=== PATIENT | female | born 1995 | race Caucasian/White ===

== ENCOUNTER 2018-09-01 19:26 | Emergency (ER) | payer OTHER ==
--- NOTE | 2018-09-01 19:31 | PDOC ---
Rapid Medical Evaluation Time Seen by Provider: 09/01/18 19:29 Medical Evaluation: Allergies Allergy/AdvReac Type Severity Reaction Status Date / Time No Known Allergies Allergy Verified 08/13/17 01:49 09/01/18 19:29 I performed a brief in-person evaluation of this patient. Chief complaint: LLQ pain, abdominal bloating, reports green malodorous vaginal discharge Pertinent physical exam findings: LLQ tenderness I have ordered the following: Abdominal labs, urine GC Patient to proceed to the ED for further evaluation. Discharge Disposition - Diagnosis Abdominal pain - Referrals - Patient Instructions - Post Discharge Activity
[2018-09-01 19:32] VITALS: BP 134/76; PULSE 94; TEMP 97.9; BMI 23.6
[2018-09-01 19:54] LABS: BASO % 0.9 % (0-2.0); EOS % 1.2 % (0-4.5); HEMATOCRIT 42.2 % (32.4-45.2); HEMOGLOBIN 14.9 GM/dL (10.7-15.3); LYMPH % 33.8 % (8-40); MCH 33.2 pg (25.7-33.7); MCHC 35.3 g/dl (32.0-36.0); MEAN PLT VOLUME 7.4 fl (7.5-11.1); MONO % 6.5 % (3.8-10.2); NEUT % 57.6 % (42.8-82.8); PLATELET COUNT 300 K/MM3 (134-434); RDW 11.9 % (11.6-15.6); WHITE BLOOD COUNT 7.8 K/mm3 (4.0-10.0)
[2018-09-01 20:47] LABS: ALBUMIN 4.2 g/dl (3.4-5.0); ALK PHOS 83 U/L (45-117); ANION GAP 8 MMOL/L (8-16); BILIRUBIN,TOTAL 0.4 mg/dL (0.2-1); BLOOD UREA NITROGEN 17 mg/dL (7-18); CALCIUM 8.7 mg/dL (8.5-10.1); CHLORIDE 106 mmol/L (98-107); CO2 25 mmol/L (21-32); CREATININE 0.8 mg/dL (0.55-1.3); GLUCOSE,RANDOM 69 mg/dL (74-106); LIPASE 245 U/L (73-393); POTASSIUM 3.7 mmol/L (3.5-5.1); SGOT/AST 17 U/L (15-37); SGPT/ALT 16 U/L (13-61); SODIUM 139 mmol/L (136-145); TOT PROT 7.6 g/dl (6.4-8.2)
--- NOTE | 2018-09-01 22:27 | PDOC ---
Attending Attestation - HPI HPI: The patient is a 23 year old female, with no significant PMH, who presents to the emergency department today complaining of left lower quadrant abdominal pain for 3 months, and vaginal discharge for 3 weeks. Patient describes her LLQ pain as crampy in nature, without any alleviating or aggravating factors, and reports associated nausea without vomit. Patient also endorses malodorous discharge, yellow in color, with associated urinary urgency. She reports being sexually active, intermittently protective, with one male partner and is currently on control. The patient denies chest pain, shortness of breath, headache and dizziness. Denies fever, chills, vomit, diarrhea and constipation. Denies dysuria, frequency, urgency and hematuria. Allergies: NKA Past surgical history: None reported Social history: Sexually active, intermittently protective, with one male partner. Currently on control PCP: Dr. Galina Vines 09/01/18 23:21 - Physicial Exam PE: GENERAL: The patient is in no acute distress. Resting comfortably. HEAD: Normal with no signs of trauma. EYES: PERRLA, EOMI, sclera anicteric, conjunctiva clear. ENT: Ears normal, nares patent, oropharynx clear without exudates. Moist mucous membranes. NECK: Normal range of motion, supple without lymphadenopathy, JVD, or masses. LUNGS: Breath sounds equal, clear to auscultation bilaterally. No wheezes, and no crackles. HEART:Regular rate and rhythm, normal S1 and S2 without murmur, rub or gallop. ABDOMEN: +LLQ tenderness to palpation. Soft, normoactive bowel sounds. No guarding, no rebound. No masses palpable. PELVIC: As per Dr. Vargas note EXTREMITIES: Normal range of motion, no edema. No clubbing or cyanosis. No erythema, or tenderness. NEUROLOGICAL: Cranial nerves II through XII grossly intact. Normal speech. No focal neurological deficits. MUSCULOSKELETAL: Back non-tender to palpation, no CVA tenderness SKIN: Warm, Dry, normal turgor, no rashes or lesions noted. 09/01/18 23:50 - Medical Decision Making EXAM: Transvaginal ultrasound HISTORY: Left pelvic pain. Rule out torsion. FINDINGS: The uterus is in normal size and echogenicity. No uterine masses visualized. The endometrial echo complex is normal in thickness measuring 3.3 mm. The right and left ovaries are normal in size, both containing small follicles. Atrial and venous flow is demonstrated to both ovaries on Doppler evaluation. No adnexal masses visualized. No free fluid. Reported by: Shamar Smith MD. 09/02/2018 00:37 Documentation prepared by HAYLEY Woodward, acting as medical practice assistant for Taylor Joe MD. 09/02/18 00:42 <Mariama Madera - Last Filed: 09/02/18 00:42> - Resident Resident Name: Osmany Scott - ED Attending Attestation I have performed the following: I have examined & evaluated the patient, The case was reviewed & discussed with the resident, I agree w/resident's findings & plan, Exceptions are as noted - Medical Decision Making 23 yo F presenting to the ER with LLQ abdominal pain which has been present for 3 weeks, associated with vaginal discharge for 4 days No systemic signs of illness No diarrhea No vomiting No dysuria DD: IUP, ovarian torsion, ruptured cyst, PID, TOA, vaginitis, cystitis 09/03/18 01:01 Laboratory Tests 09/01/18 09/01/18 09/01/18 19:35 19:36 23:11 WBC 7.8 Hgb 14.9 Hct 42.2 D Plt Count 300 D BUN 17 Creatinine 0.8 Lipase 245 Urine Blood Negative Urine Nitrite Negative Ur Leukocyte Esterase Negative Urine HCG, Qual Negative 09/03/18 01:03 Treated for G/C empirically. UA: Neg, HCG: Neg TVUS negative for ovarian torsion, ruptured cyst <Taylor Joe - Last Filed: 09/03/18 01:08>
--- NOTE | 2018-09-01 22:43 | PDOC ---
History of Present Illness - General Chief Complaint: Pain Stated Complaint: PAIN Time Seen by Provider: 09/01/18 19:29 - History of Present Illness Initial Comments: 09/01/18 22:37 23 yo F with no significant pmh who p/w LLQ abdominal pain, and vaginal discharge. Patient reports 3 months of crampy, LLQ abdominal pain, with no identifiable triggers or alleviators. States that for past 3 weeks, she has visualized movement of abdomen. endorses nausea without vomiting x 1 day, and 4 days of malodorus, yellow, vaginal discharge. Patient denies symptom control. + increased urinary urgency. Nml bowel habits. Denies abdominal trauma. Patient denies EVANS, vision change, palpitations, cough, wheezing, orthopena, PND , leg swelling/pain, F,C, CP, SOB, dysuria, hematuria, BPR, pelvic pain, dyspareurnia, diarrhea, constipation, lightheadedness, weakness, sensory changes. PMHx: as noted above ROS: as noted SHx: Denies Etoh, IVDA, tobacco use. Sexually active with one sexual male partner ( intermittent condom/barrier protection). Denies h/o STI's. Contraception/Depo Provera IM. Allergies: NKDA Past History - Past Medical History Allergies/Adverse Reactions: Allergies Allergy/AdvReac Type Severity Reaction Status Date / Time No Known Allergies Allergy Verified 09/01/18 19:32 Home Medications: Ambulatory Orders Ibuprofen [Motrin -] 200 mg PO Q4H PRN #0 tablet 07/30/16 Benzonatate [Tessalon Pearls -] 100 mg PO TID PRN #21 capsule 08/13/17 Ibuprofen [Motrin -] 400 mg PO QID PRN #28 tablet 08/13/17 Pseudoephedrine HCl [Pseudoephedrine ER] 120 mg PO BID PRN #14 tablet.er Doxycycline Hyclate 100 mg PO BID 14 Days #28 capsule MDD 2 tab 09/01/18 Asthma: Yes Cancer: No Cardiac Disorders: No COPD: No Diabetes: No HTN: No Seizures: No Thyroid Disease: No - Immunization History Immunization Up to Date: Yes - Suicide/Smoking/Psychosocial Hx Smoking History: Never smoked Have you smoked in the past 12 months: No Hx Alcohol Use: No Drug/Substance Use Hx: No Substance Use Type: None Hx Substance Use Treatment: No Review of Systems - Review of Systems Comments:: 09/01/18 22:42 GENERAL/CONSTITUTIONAL: No fever or chills. No weakness. HEAD, EYES, EARS, NOSE AND THROAT: No change in vision. No ear pain or discharge. No sore throat. CARDIOVASCULAR: No chest pain or shortness of breath RESPIRATORY: No cough, wheezing, or hemoptysis. GASTROINTESTINAL: + abdominal pain and nausea. no vomiting, diarrhea or constipation. GENITOURINARY: + vaginal discharge and urinary frequency. No dysuria. MUSCULOSKELETAL: No joint or muscle swelling or pain. No neck or back pain. SKIN: No rash NEUROLOGIC: No headache, vertigo, loss of consciousness, or change in strength/ sensation. ENDOCRINE: No increased thirst. No abnormal weight change HEMATOLOGIC/LYMPHATIC: No anemia, easy bleeding, or history of blood clots. ALLERGIC/IMMUNOLOGIC: No hives or skin allergy. *Physical Exam - Vital Signs Last Vital Signs Temp Pulse Resp BP Pulse Ox 97.9 F 94 H 18 134/76 98 09/01/18 19:28 09/01/18 19:28 09/01/18 19:28 09/01/18 19:28 09/01/18 19:28 - Physical Exam Comments: 09/01/18 22:43 GENERAL: Awake, alert, and fully oriented, in no acute distress HEAD: No signs of trauma, normocephalic, atraumatic EYES: PERRLA, EOMI, sclera anicteric, conjunctiva clear ENT: Hearing grossly normal, nares patent, oropharynx clear without exudates. Moist mucosa NECK: Normal ROM, supple, no lymphadenopathy, JVD, or masses LUNGS: No distress, speaks full sentences, clear to auscultation bilaterally HEART: Regular rate and rhythm, normal S1 and S2, no murmurs, rubs or gallops, peripheral pulses normal and equal bilaterally. ABDOMEN: + LLQ abdominal ttp. Soft, NDS, normoactive bowel sounds. No guarding , no rebound. No masses. Neg CVA ttp. GENITOURINARY: Nml appearing external genitalia, with absent lesions. Vaginal vault without blood, or discharge. Cervical os closed. Neg CMT on BM. Neg adenexal ttp, or mass palpated. EXTREMITIES : Normal inspection, Normal range of motion, no edema. No clubbing or cyanosis. NEUROLOGICAL: Cranial nerves II through XII grossly intact. Normal speech, normal gait, no focal sensorimotor deficits SKIN: Warm, Dry, normal turgor, no rashes or lesions noted Moderate Sedation - Procedure Monitoring Vital Signs: Procedure Monitoring Vital Signs Temperature 97.9 F 09/01/18 19:28 Pulse Rate 94 H 09/01/18 19:28 Respiratory Rate 18 09/01/18 19:28 Blood Pressure 134/76 09/01/18 19:28 O2 Sat by Pulse Oximetry (%) 98 09/01/18 19:28 ED Treatment Course - LABORATORY CBC & Chemistry Diagram: 09/01/18 19:36 09/01/18 19:35 - ADDITIONAL ORDERS Additional order review: Laboratory Results 09/01/18 19:35 Sodium 139 Potassium 3.7 Chloride 106 Carbon Dioxide 25 Anion Gap 8 BUN 17 Creatinine 0.8 Creat Clearance w eGFR 89.69 Random Glucose 69 L Calcium 8.7 Total Bilirubin 0.4 AST 17 ALT 16 Alkaline Phosphatase 83 Total Protein 7.6 Albumin 4.2 Lipase 245 09/01/18 19:36 RBC 4.50 MCV 94.0 MCHC 35.3 RDW 11.9 MPV 7.4 L Neutrophils % 57.6 Lymphocytes % 33.8 D Monocytes % 6.5 Eosinophils % 1.2 D Basophils % 0.9 Medical Decision Making - Medical Decision Making 09/01/18 22:41 23 yo F with no significant pmh who p/w crampy LLQ abdominal pain x 3 weeks, and yellow malodorous vaginal discharge x 4 days. Denies F,C, CP, SOB, dysuria , hematuria, BPR, pelvic pain, dyspareurnia, diarrhea, constipation, lightheadedness, weakness, sensory changes. Physical exam with LLQ abdominal ttp. Will assess for IUP. R/o ovarian torsion. Will consider PID, TOA, vaginitis , cystitis, colitis, diverticulitis, nephrolithiasis. Will provide pain control , and reasses. 09/01/18 22:43 Ed Course: 09/01/18 22:48 Patient advised to f/u with property management assistant 09/01/18 22:49 CBC,CMP: Unremarkable Will treat G/C empirically. Ceftriaxone 250 mg IM Doxycycline 100 mg BID 14 days to pharmacy UA: Neg, HCG: Neg TVUS 09/01/18 23:36 Patient stable, pending TVUS. Signed out to night team. *DC/Admit/Observation/Transfer Diagnosis at time of Disposition: Vaginal discharge Abdominal pain Qualifiers: Abdominal location: left lower quadrant Qualified Code(s): R10.32 - Left lower quadrant pain - Discharge Dispostion Condition at time of disposition: Stable - Prescriptions Prescriptions: Doxycycline Hyclate 100 mg PO BID 14 Days #28 capsule MDD 2 tab - Referrals Referrals: Galina Vines [Primary Care Provider] - Heaven Fountain MD [Staff Physician] - - Patient Instructions Printed Discharge Instructions: DI for Vaginal Discharge Additional Instructions: Please return to the emergency department with any new or worsening symptoms or concerns. Please follow up with your primary care physician within 72 hours. Please follow up with gynecology within 48 hours-72 hours. Meds sent to [facility]. Take Doxycycline two times a day for 14 days. - Post Discharge Activity - Attestations Physician Attestion: 09/01/18 22:48 I attest to the information provided in this note.
[2018-09-01] MEDS ORDERED: DOXYCYCLINE HYCLATE 100 MG CAPSULE PO ONE (23:10)
[2018-09-01 23:26] LABS: URINE APPEARANCE CLEAR; URINE BILIRUBIN NEGATIVE (<2.0 mg/dL); URINE COLOR LTYELLOW; URINE GLUCOSE (UA) NEGATIVE (NEGATIVE); URINE KETONE NEGATIVE (NEGATIVE); URINE LEUK ESTERASE NEGATIVE (NEGATIVE); URINE NITRITE NEGATIVE (NEGATIVE); URINE PROTEIN NEGATIVE (NEGATIVE)
[2018-09-01 23:27] LABS: HCG,QUALITATIVE URINE Negative
--- NOTE | 2018-09-01 23:59 | PDOC ---
*Physical Exam - Vital Signs Last Vital Signs Temp Pulse Resp BP Pulse Ox 97.9 F 94 H 18 134/76 98 09/01/18 19:28 09/01/18 19:28 09/01/18 19:28 09/01/18 19:28 09/01/18 19:28 ED Treatment Course - LABORATORY CBC & Chemistry Diagram: 09/01/18 19:36 09/01/18 19:35 - ADDITIONAL ORDERS Additional order review: Laboratory Results 09/01/18 09/01/18 23:11 19:35 Sodium 139 Potassium 3.7 Chloride 106 Carbon Dioxide 25 Anion Gap 8 BUN 17 Creatinine 0.8 Creat Clearance w eGFR 89.69 Random Glucose 69 L Calcium 8.7 Total Bilirubin 0.4 AST 17 ALT 16 Alkaline Phosphatase 83 Total Protein 7.6 Albumin 4.2 Lipase 245 Urine Color Ltyellow Urine Appearance Clear Urine pH 6.0 Ur Specific Comfort 1.021 Urine Protein Negative Urine Glucose (UA) Negative Urine Ketones Negative Urine Blood Negative Urine Nitrite Negative Urine Bilirubin Negative Urine Urobilinogen 2.0 H Ur Leukocyte Esterase Negative Urine HCG, Qual Negative 09/01/18 19:36 RBC 4.50 MCV 94.0 MCHC 35.3 RDW 11.9 MPV 7.4 L Neutrophils % 57.6 Lymphocytes % 33.8 D Monocytes % 6.5 Eosinophils % 1.2 D Basophils % 0.9 Medical Decision Making - Medical Decision Making 09/01/18 23:58 Patient is a 23 yo female w/ no significant pmh who presents for evaluation of LLQ abdominal pain w/ 1 week of discharge. Patient currently pending TVUS for r/ o torsion. Has gotten rocephin IM and doxycycline sent to patient's pharmacy. 09/02/18 00:53 TVUS negative. No concern for acute process at this time. Discharging patient to home w/ above ABX. Patient will f/u w/ PCP for further outpatient evaluation. *DC/Admit/Observation/Transfer Diagnosis at time of Disposition: Vaginal discharge Abdominal pain Qualifiers: Abdominal location: left lower quadrant Qualified Code(s): R10.32 - Left lower quadrant pain - Discharge Dispostion Disposition: HOME Condition at time of disposition: Stable - Prescriptions Prescriptions: Doxycycline Hyclate 100 mg PO BID 14 Days #28 capsule MDD 2 tab - Referrals Referrals: Heaven Fountain MD [Staff Physician] - Galina Vines [Primary Care Provider] - - Patient Instructions Printed Discharge Instructions: DI for Vaginal Discharge Additional Instructions: You were evaluated today in the emergency room for your pain. We performed an ultrasound which was normal. We treated you with antibiotics and also sent a prescription to your pharmacy. Please take all medications as proscribed. Follow up with your primary care physician within 1-2 days for further evaluation. Return to the emergency room if you experience any fever, chills, increase in pain, or other concerning symptoms. - Post Discharge Activity
[2018-09-02] MEDS ORDERED: cefTRIAXone SODIUM 1 GM VIAL ONE (00:25)
[2018-09-02] MEDS ORDERED: DOXYCYCLINE HYCLATE 100 MG CAPSULE PO ONE (00:25)
== END 2018-09-02 01:24 | disposition home or self-care (01) ==
LOC: JER 19:26
DX: N89.8 Other specified noninflammatory disorders of vagina (principal)
CPT/HCPCS: 36415; 76830-TC; 80053; 81003; 83690; 84703; 85025; 87086; 96372; 99281-25

== ENCOUNTER 2019-05-18 22:21 | Emergency (ER) | payer OTHER ==
[2019-05-18 22:49] VITALS: BP 130/71; PULSE 94; TEMP 98.5; BMI 25.9
--- NOTE | 2019-05-18 23:32 | PDOC ---
History of Present Illness - General Chief Complaint: Ear Problem Stated Complaint: EARACHE Time Seen by Provider: 05/18/19 23:18 History Source: Patient Exam Limitations: No Limitations Past History - Past Medical History Allergies/Adverse Reactions: Allergies Allergy/AdvReac Type Severity Reaction Status Date / Time No Known Allergies Allergy Verified 09/01/18 19:32 Home Medications: Ambulatory Orders Ibuprofen [Motrin -] 200 mg PO Q4H PRN #0 tablet 07/30/16 Benzonatate [Tessalon Pearls -] 100 mg PO TID PRN #21 capsule 08/13/17 Ibuprofen [Motrin -] 400 mg PO QID PRN #28 tablet 08/13/17 Pseudoephedrine HCl [Pseudoephedrine ER] 120 mg PO BID PRN #14 tablet.er Doxycycline Hyclate 100 mg PO BID 14 Days #28 capsule MDD 2 tab 09/01/18 Neomycin/Polymyxn/Hc [Cortisporin Otic Solution -] 4 drop Q6HPO #1 bottle Asthma: Yes Cancer: No Cardiac Disorders: No COPD: No Diabetes: No HTN: No Seizures: No Thyroid Disease: No - Immunization History Immunization Up to Date: Yes - Psycho Social/Smoking Cessation Hx Smoking History: Never smoked Have you smoked in the past 12 months: No Hx Alcohol Use: No Drug/Substance Use Hx: No Substance Use Type: None Hx Substance Use Treatment: No *Physical Exam - Vital Signs Last Vital Signs Temp Pulse Resp BP Pulse Ox 98.5 F 94 H 19 130/71 100 05/18/19 22:45 05/18/19 22:45 05/18/19 22:45 05/18/19 22:45 05/18/19 22:45 - Physical Exam General Appearance: No: Apparent Distress HEENT: positive: Pharynx Normal, Other (pain on pulling L ear pinna, pain on pressing L tragus, +narrowing of L ear canal, TM difficult to visualize but no obvious bulging noted, no mastoid tenderness) Integumentary: positive: Normal Color Neurologic: positive: Alert Medical Decision Making - Medical Decision Making 24 y/o F presents with L ear pain from today. Denies fever, throat pain, cough, sob, cp, abd pain, n/v. L ear otitis externa - will start on ear drops 05/18/19 23:56 Discharge - Discharge Information Problems reviewed: Yes Clinical Impression/Diagnosis: Otitis externa Qualifiers: Otitis externa type: unspecified type Chronicity: acute Laterality: left Qualified Code(s): H60.502 - Unspecified acute noninfective otitis externa, left ear Condition: Stable Disposition: HOME - Admission No - Additional Discharge Information Prescriptions: Neomycin/Polymyxn/Hc [Cortisporin Otic Solution -] 4 drop Q6HPO #1 bottle Prescription Drug Monitoring Program (I-STOP) results: I-STOP not reviewed - Follow up/Referral Referrals: Galina Vines [Primary Care Provider] - 2 Days - Patient Discharge Instructions Patient Printed Discharge Instructions: DI for Otitis Externa Additional Instructions: Thank you for choosing [facility]. It was a pleasure taking care of you. Use the ear drops 4 times daily for 1 week. Follow-up with your doctor in 2-3 days Return to the Emergency Department if your symptoms worsen or persist or have other concerning symptoms. - Post Discharge Activity
== END 2019-05-19 00:04 | disposition home or self-care (01) ==
LOC: JER 22:21
DX: H60.502 Unspecified acute noninfective otitis externa, left ear (principal)
CPT/HCPCS: 99282-25

== ENCOUNTER 2020-08-26 22:05 | Inpatient (IN) | payer OTHER ==
[2020-08-26] MEDS: DEXTROSE 5%-LACTATED RINGERS 1,000 ML IV SCH (22:30)
[2020-08-26] MEDS ORDERED: DINOPROSTONE 10 MG VAGINAL SUPPOSITORY VG ONE (23:00)
[2020-08-26 23:22] LABS: BASO % 0.5 % (0-2.0); EOS % 0.2 % (0-4.5); HEMOGLOBIN 13.1 GM/dL (10.7-15.3); LYMPH % 28.8 % (8-40); MCH 32.2 pg (25.7-33.7); MCHC 35.4 g/dl (32.0-36.0); MEAN PLT VOLUME 7.7 fl (7.5-11.1); MONO % 5.3 % (3.8-10.2); NEUT % 65.2 % (42.8-82.8); PLATELET COUNT 313 K/MM3 (134-434); RBC 4.06 M/mm3 (3.60-5.2); RDW 12.3 % (11.6-15.6); WHITE BLOOD COUNT 8.2 K/mm3 (4.0-10.0)
[2020-08-26 23:23] LABS: INR 0.92 (0.83-1.09); PROTHROMBIN TIME (PATIENT) 11.3 SEC (9.7-13.0)
[2020-08-26 23:26] LABS: ACTIVATED PTT 26.4 SECONDS (25.2-36.5)
[2020-08-26 23:39] LABS: POTASSIUM 3.9 mmol/L (3.5-5.1)
[2020-08-26 23:40] LABS: CALCIUM 8.7 mg/dL (8.5-10.1)
[2020-08-26 23:41] LABS: BLOOD UREA NITROGEN 5.5 mg/dL (7-18)
[2020-08-26 23:44] LABS: CREATININE 0.5 mg/dL (0.55-1.3)
[2020-08-26 23:56] LABS: COCAINE, UR NEGATIVE ng/ml (CUTOFF=300); METHADONE, UR NEGATIVE ng/ml (CUTOFF=300); OPIATES, URI NEGATIVE ng/ml (CUTOFF=300); PHENCYCLIDINE,URINE NEGATIVE ng/ml (CUTOFF=25); URINE AMPHETAMINES NEGATIVE ng/ml (CUTOFF=500); URINE BARBITURATES NEGATIVE ng/ml (CUTOFF=200); URINE BENZODIAZEPINES NEGATIVE ng/ml (CUTOFF=200)
[2020-08-27 00:39] VITALS: BMI 26.6
[2020-08-27] MEDS: DEXTROSE 5%-LACTATED RINGERS 1,000 ML IV SCH (02:20)
[2020-08-27] MEDS ORDERED: PROMETHAZINE HCL 25 MG/1 ML VIAL IVPB ONE (04:30)
[2020-08-27] MEDS ORDERED: BUTORPHANOL TARTRATE 2 MG/ML VIAL IVPB ONE (04:30)
[2020-08-27] MEDS ORDERED: BUTORPHANOL TARTRATE 2 MG/ML VIAL ONE (05:06)
[2020-08-27] MEDS ORDERED: PROMETHAZINE HCL 25 MG/1 ML VIAL ONE (05:06)
[2020-08-27] MEDS ORDERED: OXYTOCIN 20 UNITS in 0.9% NS 20 UNIT/1,000 ML INFUS.BAG IV ONE ×2 (06:17→09:10)
[2020-08-27] MEDS ORDERED: BENZOCAINE 28 GM HEMORRHOIDAL OINTMENT TP PRN (07:46)
[2020-08-27] MEDS ORDERED: BISACODYL 10 MG SUPP.RECT RC PRN (07:46)
[2020-08-27] MEDS ORDERED: WITCH HAZEL 50% (TUCKS) 40 PAD/JAR PAD TP PRN (07:46)
[2020-08-27] MEDS ORDERED: ACETAMINOPHEN 325 MG TABLET (FP) PO PRN (07:46)
[2020-08-27] MEDS ORDERED: IBUPROFEN 600 MG TABLET (FP) PO PRN (07:46)
[2020-08-27] MEDS ORDERED: OXYTOCIN 20 UNITS in 0.9% NS 1000 ML INFUS.BAG IV ONE (07:46)
[2020-08-27] MEDS ORDERED: METHYLERGONOVINE MALEATE 0.2 MG/1 ML AMP IM PRN (07:46)
[2020-08-27] MEDS ORDERED: BENZOCAINE 20% 57 GM BOTTLE TP PRN (07:46)
[2020-08-27] MEDS ORDERED: OXYTOCIN 20 UNITS in 0.9% NS 20 UNIT/1,000 ML INFUS.BAG IV SCH (08:15)
[2020-08-27] MEDS ORDERED: METHYLERGONOVINE MALEATE 0.2 MG/1 ML AMP IM ONE (08:15)
[2020-08-27 10:13] LABS: BASO % 0.3 % (0-2.0); HEMATOCRIT 31.1 % (32.4-45.2); HEMOGLOBIN 10.9 GM/dL (10.7-15.3); LYMPH % 8.5 % (8-40); MCH 32.3 pg (25.7-33.7); MEAN CELL VOLUME 92.2 fl (80-96); MEAN PLT VOLUME 7.9 fl (7.5-11.1); MONO % 3.9 % (3.8-10.2); NEUT % 87.3 % (42.8-82.8); PLATELET COUNT 359 K/MM3 (134-434); RBC 3.38 M/mm3 (3.60-5.2); RDW 12.3 % (11.6-15.6); WHITE BLOOD COUNT 23.6 K/mm3 (4.0-10.0)
[2020-08-27 11:05] LABS: ANISOCYTOSIS 1+; MACROCYTOSIS 0; PLATELET ESTIMATE NORMAL
[2020-08-28 01:04] VITALS: TEMP 98.4
[2020-08-28 09:25] LABS: BASO % 0.4 % (0-2.0); EOS % 0.2 % (0-4.5); HEMATOCRIT 21.5 % (32.4-45.2); HEMOGLOBIN 7.5 GM/dL (10.7-15.3); LYMPH % 29.4 % (8-40); MCH 32.2 pg (25.7-33.7); MCHC 34.8 g/dl (32.0-36.0); MEAN CELL VOLUME 92.5 fl (80-96); MEAN PLT VOLUME 7.5 fl (7.5-11.1); PLATELET COUNT 257 K/MM3 (134-434); RBC 2.32 M/mm3 (3.60-5.2); RDW 12.6 % (11.6-15.6); WHITE BLOOD COUNT 12.2 K/mm3 (4.0-10.0)
[2020-08-28 10:55] VITALS: BP 105/68; PULSE 104
[2020-08-28] MEDS ORDERED: SENNOSIDES/DOCUSATE COMBO (SENNA PLUS) TABLET (UD) PO PRN (22:00)
== END 2020-08-28 13:40 | disposition home or self-care (01) | DRG 560 ==
LOC: JLDR 22:05 → J3W 08-27 10:30
PROVIDERS: ADMIT Specialist; ATTEND Specialist
PROC: 3E0P7VZ Introduction of Hormone into Female Reproductive, Via Natural or Artificial Opening (ICD-10-PCS; principal; 2020-08-26)
PROC: 10E0XZZ Delivery of Products of Conception, External Approach (ICD-10-PCS; 2020-08-27)
PROC: 0W8NXZZ Division of Female Perineum, External Approach (ICD-10-PCS; 2020-08-27)
PROC: 10907ZC Drainage of Amniotic Fluid, Therapeutic from Products of Conception, Via Natural or Artificial Opening (ICD-10-PCS; 2020-08-27)
DX: O48.0 Post-term pregnancy (principal); O77.0 Labor and delivery complicated by meconium in amniotic fluid; Z3A.40 40 weeks gestation of pregnancy; Z37.0 Single live birth; Z87.09 Personal history of other diseases of the respiratory system
CPT/HCPCS: 36415; 59409; 80048; 80307; 85025; 85610; 85730; 86780; 86850; 86900; 86901; 87086; C9803; U0003

== ENCOUNTER 2023-03-21 04:05 | Inpatient (IN) | payer OTHER ==
[2023-03-21] MEDS: OXYTOCIN 20 UNITS in 0.9% NS 20 UNIT/1,000 ML INFUS.BAG IV SCH ×2 (04:39→07:23)
[2023-03-21] MEDS ORDERED: BENZOCAINE 28 GM HEMORRHOIDAL OINTMENT TP PRN (05:23)
[2023-03-21] MEDS ORDERED: WITCH HAZEL 50% (TUCKS) 40 PAD/JAR PAD TP PRN (05:23)
[2023-03-21] MEDS ORDERED: ACETAMINOPHEN 325 MG TABLET (FP) PO PRN (05:23)
[2023-03-21] MEDS ORDERED: IBUPROFEN 600 MG TABLET (FP) PO PRN (05:23)
[2023-03-21] MEDS ORDERED: METHYLERGONOVINE MALEATE 0.2 MG/1 ML AMP IM PRN (05:23)
[2023-03-21] MEDS ORDERED: BENZOCAINE 20% 57 GM BOTTLE TP PRN (05:23)
[2023-03-21] MEDS ORDERED: BISACODYL 10 MG SUPP.RECT RC PRN (05:23)
[2023-03-21] MEDS ORDERED: OXYTOCIN 10 UNITS/ML VIAL IM ONE (05:30)
[2023-03-21 05:41] VITALS: BMI 24.2
[2023-03-21 05:46] LABS: BASO % 0.3 % (0-2.0); HEMATOCRIT 39.7 % (32.4-45.2); HEMOGLOBIN 13.2 GM/dL (10.7-15.3); LYMPH % 7.5 % (8-40); MCH 29.1 pg (25.7-33.7); MCHC 33.2 g/dl (32.0-36.0); MEAN CELL VOLUME 87.6 fl (80-96); MEAN PLT VOLUME 7.7 fl (7.5-11.1); MONO % 2.4 % (3.8-10.2); NEUT % 89.8 % (42.8-82.8); PLATELET COUNT 287 10^3/uL (134-434); RBC 4.53 M/mm3 (3.60-5.2); RDW 13.4 % (11.6-15.6); WHITE BLOOD COUNT 14.2 K/mm3 (4.0-10.0)
[2023-03-21 06:01] LABS: INR 0.98 (0.83-1.09); PROTHROMBIN TIME (PATIENT) 11.4 SEC (9.7-13.0)
[2023-03-21 06:03] LABS: POTASSIUM 4.5 mmol/L (3.5-5.1)
[2023-03-21 06:04] LABS: ACTIVATED PTT 25.9 SECONDS (25.2-36.5); CALCIUM 8.2 mg/dL (8.5-10.1)
[2023-03-21 06:05] LABS: BLOOD UREA NITROGEN 8.6 mg/dL (7-18)
[2023-03-21 06:08] LABS: CREATININE 0.6 mg/dL (0.55-1.3)
[2023-03-21] MEDS ORDERED: OXYTOCIN 20 UNITS in 0.9% NS 20 UNIT/1,000 ML INFUS.BAG IV ONE (07:21)
[2023-03-21] MEDS: PRENATAL VITAMINS W/ FOLIC ACID TABLET (FP) PO SCH (09:10)
[2023-03-22 01:23] VITALS: RESP 18
[2023-03-22 07:24] LABS: BASO % 0.7 % (0-2.0); EOS % 0.2 % (0-4.5); HEMATOCRIT 37.6 % (32.4-45.2); HEMOGLOBIN 12.6 GM/dL (10.7-15.3); LYMPH % 23.7 % (8-40); MCH 29.7 pg (25.7-33.7); MCHC 33.5 g/dl (32.0-36.0); MEAN CELL VOLUME 88.6 fl (80-96); MEAN PLT VOLUME 7.7 fl (7.5-11.1); MONO % 3.9 % (3.8-10.2); NEUT % 71.5 % (42.8-82.8); PLATELET COUNT 313 10^3/uL (134-434); RBC 4.24 M/mm3 (3.60-5.2); RDW 13.2 % (11.6-15.6); WHITE BLOOD COUNT 12.5 K/mm3 (4.0-10.0)
[2023-03-22 08:58] VITALS: BP 106/73; PULSE 107; TEMP 97.5
[2023-03-22] MEDS: PRENATAL VITAMINS W/ FOLIC ACID TABLET (FP) PO SCH (09:52)
[2023-03-22] MEDS ORDERED: FLU VACCINE (FLULAVAL) PF 60 MCG/0.5 ML SYRINGE 2023-2024 IM ONE (12:00)
[2023-03-22] MEDS ORDERED: SENNOSIDES/DOCUSATE COMBO (SENNA PLUS) TABLET (UD) PO PRN (22:00)
== END 2023-03-22 19:14 | disposition home or self-care (01) | DRG 560 ==
LOC: JLDR 04:05 → J3W 07:50
PROVIDERS: ADMIT Obstetrics & Gynecology; ATTEND Obstetrics & Gynecology
PROC: 10E0XZZ Delivery of Products of Conception, External Approach (ICD-10-PCS; principal; 2023-03-21)
DX: O80 Encounter for full-term uncomplicated delivery (principal); Z3A.39 39 weeks gestation of pregnancy; Z37.0 Single live birth
CPT/HCPCS: 36415; 80048; 85025; 85610; 85730; 86780; 86850; 86900; 86901; 90686; G0008

== ENCOUNTER 2024-02-13 19:09 | Emergency (ER) | payer OTHER ==
[2024-02-13 19:25] VITALS: BP 117/70; PULSE 90; RESP 18; TEMP 98.4; BMI 21.6
[2024-02-13] MEDS: SODIUM CHLORIDE 0.9% 500 ML INFUS.BAG IV ONE (21:01)
[2024-02-13 21:06] LABS: BASO % 0.8 % (0-2.0); EOS % 0.8 % (0-4.5); HEMATOCRIT 42.9 % (32.4-45.2); HEMOGLOBIN 14.9 GM/dL (10.7-15.3); LYMPH % 21.6 % (8-40); MCH 31.3 pg (25.7-33.7); MCHC 34.6 g/dl (32.0-36.0); MEAN CELL VOLUME 90.5 fl (80-96); MEAN PLT VOLUME 7.1 fl (7.5-11.1); MONO % 5.1 % (3.8-10.2); NEUT % 71.7 % (42.8-82.8); PLATELET COUNT 312 10^3/uL (134-434); RBC 4.74 M/mm3 (3.60-5.2); RDW 12.2 % (11.6-15.6); WHITE BLOOD COUNT 9.3 K/mm3 (4.0-10.0)
[2024-02-13 21:07] LABS: HCG,QUALITATIVE URINE Negative
[2024-02-13 21:13] LABS: COCAINE, UR NEGATIVE (NEGATIVE); URINE BARBITURATES NEGATIVE (NEGATIVE)
[2024-02-13 21:14] LABS: METHADONE, UR NEGATIVE (NEGATIVE); OPIATES, URI NEGATIVE (NEGATIVE); PHENCYCLIDINE,URINE NEGATIVE (NEGATIVE); URINE AMPHETAMINES NEGATIVE (NEGATIVE); URINE BENZODIAZEPINES NEGATIVE (NEGATIVE)
[2024-02-13 21:15] LABS: EPI CELLS 4 /uL (0-25.1); HYALINE CASTS 1 /uL (0-3.1); URINE APPEARANCE CLEAR; URINE BACTERIA 36 /uL (0-1359); URINE BILIRUBIN NEGATIVE (NEGATIVE); URINE COLOR YELLOW; URINE GLUCOSE (UA) NEGATIVE (NEGATIVE); URINE KETONE 1+ (NEGATIVE); URINE LEUK ESTERASE 1+ (NEGATIVE); URINE NITRITE NEGATIVE (NEGATIVE); URINE PROTEIN NEGATIVE (NEGATIVE); URINE RBC 14 /uL (0-23.9); URINE WBC 7 /uL (0-25.8)
[2024-02-13 21:26] LABS: CHLORIDE 106 mmol/L (98-107); POTASSIUM 3.4 mmol/L (3.5-5.1); SODIUM 141 mmol/L (136-145)
[2024-02-13 21:28] LABS: ALBUMIN 4.2 g/dl (3.4-5.0); CALCIUM 9.2 mg/dL (8.5-10.1)
[2024-02-13 21:29] LABS: ANION GAP 7 mmol/L (4-13); BLOOD UREA NITROGEN 10.1 mg/dL (7-18); CO2 29 mmol/L (21-32); GLUCOSE,RANDOM 122 mg/dL (74-106)
[2024-02-13 21:32] LABS: CREATININE 0.7 mg/dL (0.55-1.3); SGOT/AST 15 U/L (15-37); SGPT/ALT 16 U/L (13-61)
[2024-02-13 21:33] LABS: TOT PROT 7.8 g/dl (6.4-8.2)
[2024-02-13 21:34] LABS: ALK PHOS 99 U/L (45-117)
== END 2024-02-14 12:40 | disposition home or self-care (01) ==
LOC: JER 19:09
DX: T43.022A Poisoning by tetracyclic antidepressants, intentional self-harm, initial encounter (principal); F32.A Depression, unspecified; R45.851 Suicidal ideations; R63.0 Anorexia
CPT/HCPCS: 36415; 80053; 80307; 81003; 84443; 84703; 85025; 93005; 93010; 99284-25